=== PATIENT | male | born 1950 | race Caucasian/White ===

== ENCOUNTER 2024-01-12 08:27 | Outpatient (CLI) | payer OTHER | END 2024-01-12 08:29 | disposition home or self-care (01) | LOC: SONOGRAMA 08:27 | PROVIDERS: ATTEND Pathology Anatomic Pathology & Clinical Pathology | DX: D17.0 Benign lipomatous neoplasm of skin and subcutaneous tissue of head, face and neck (principal); R22.1 Localized swelling, mass and lump, neck ==